=== PATIENT | female | born 1935 | race Caucasian/White ===

== ENCOUNTER 2018-06-22 12:57 | Emergency (ER) | payer MEDICARE, OTHER | END 2018-06-22 14:45 | disposition home or self-care (01) | LOC: MADERS 12:57 | DX: I48.92 Unspecified atrial flutter (principal); T50.905A Adverse effect of unspecified drugs, medicaments and biological substances, initial encounter; E78.5 Hyperlipidemia, unspecified; I20.9 Angina pectoris, unspecified; I10 Essential (primary) hypertension; M19.90 Unspecified osteoarthritis, unspecified site; F32.9 Major depressive disorder, single episode, unspecified; F03.90 Unspecified dementia, unspecified severity, without behavioral disturbance, psychotic disturbance, mood disturbance, and anxiety | CPT/HCPCS: 93005 ==